=== PATIENT | male | born 1945 | race Caucasian/White ===

== ENCOUNTER 2019-10-06 16:45 | Emergency (ER) | payer MEDICARE, BC ==
--- NOTE | 2019-10-06 17:59 | ER Document Report ---
ED Medical Screen (RME) - General Chief Complaint: Laceration Stated Complaint: LACERATION/LEFT THUMB,TABLE SAW Time Seen by Provider: 10/06/19 17:54 Primary Care Provider: ANITRA NOONAN MD [Primary Care Provider] - Follow up as needed Mode of Arrival: Ambulatory Information source: Patient Notes: 74-year-old male presented to ED for significant laceration to the end of the left thumb from about the joint to the end of the finger. He states he was holding a board to cut and with a table saw when the saw got his thumb. He states he had a tetanus shot very recently. He states he was leukemic and is just gone into remission about a year ago. He is alert oriented respirations regular nonlabored speaking in full sentences. The bleeding is under control at this time when he first came in it was still bleeding but now it is stopped. I have greeted and performed a rapid initial assessment of this patient. A comprehensive ED assessment and evaluation of the patient, analysis of test results and completion of medical decision making process will be conducted by an additional ED providers. TRAVEL OUTSIDE OF THE [place] 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
[2019-10-06] MEDS ORDERED: LIDOCAINE 1% INJ-PF (10 MG/ML) 30 ML SDV INJ ONE (18:22)
[2019-10-06] MEDS ORDERED: DIPH/PERTUSS(ACELL)/TETANUS VAC/PF 0.5 ML SYR (>=10YO) IM ONE (18:30)
--- NOTE | 2019-10-06 18:30 | ER Document Report ---
ED General - General Chief Complaint: Laceration Stated Complaint: LACERATION/LEFT THUMB,TABLE SAW Time Seen by Provider: 10/06/19 17:54 Primary Care Provider: ANITRA NOONAN MD [Primary Care Provider] - Follow up as needed Mode of Arrival: Ambulatory Notes: Patient is a 74-year-old white male with a past medical history of leukemia in remission who presents to the emergency department with a chief complaint of thumb laceration that occurred just prior to arrival. The patient reports that he was using a table saw to cut some wood when it accidentally cut the pad of his left thumb. 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 He is taking it 3 times a day for 10 days, reports that he has approximately 9 days remaining. He reports it was bleeding at first but it has since ceased. He denies any numbness tingling or weakness. Denies any decreased range of motion. He is unsure of his last tetanus. TRAVEL OUTSIDE OF THE [place] IN LAST 30 DAYS: No - Related Data Allergies/Adverse Reactions: No Known Allergies Allergy (Verified 10/06/19 17:55) Past Medical History - General Information source: Patient - Social History Smoking Status: Former Smoker Chew tobacco use (# tins/day): No Frequency of alcohol use: Social Drug Abuse: None Family History: None Patient has suicidal ideation: No Patient has homicidal ideation: No - Past Medical History Cardiac Medical History: Denies: Hx Coronary Artery Disease, Hx Heart Attack, Hx Hypertension Pulmonary Medical History: Reports: Hx Pneumonia - 2006 Denies: Hx Asthma, Hx Bronchitis, Hx COPD Neurological Medical History: Denies: Hx Cerebrovascular Accident, Hx Seizures Musculoskeletal Medical History: 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, B/L knees Past Surgical History: Denies: Hx Pacemaker - Immunizations Hx Diphtheria, Pertussis, Tetanus Vaccination: Yes Review of Systems - Review of Systems Skin: Other - Laceration -: Yes All other systems reviewed and negative Physical Exam - Vital signs Vitals: Temp Pulse Resp BP Pulse Ox 98.1 F 82 18 154/78 H 97 10/06/19 17:14 10/06/19 17:14 10/06/19 17:14 10/06/19 17:14 10/06/19 17:14 - General General appearance: Appears well, Alert In distress: None - Respiratory Respiratory status: No respiratory distress Chest status: Nontender Breath sounds: Normal Chest palpation: Normal - Cardiovascular Rhythm: Regular Heart sounds: Normal auscultation - Extremities Hand: Other - Full range of motion of the left thumb with and without resistance - Neurological Neuro grossly intact: Yes Cognition: Normal Orientation: AAOx4 Golden Coma Scale Eye Opening: Spontaneous Giovana Coma Scale Verbal: Oriented Golden Coma Scale Motor: Obeys Commands Giovana Coma Scale Total: 15 Speech: Normal Motor strength normal: LUE, RUE, LLE, RLE Sensory: Normal - Psychological Associated symptoms: Normal affect, Normal mood - Skin Skin Temperature: Warm Skin Moisture: Dry Skin Color: Other - 2 cm laceration across the pad of the left thumb, jagged. No foreign body visualized. Hemostasis maintained. Good capillary refill distally. Course - Re-evaluation Re-evalutation: 10/06/19 20:07 Patient tolerated wound closure well. The remaining skin avulsion area was closed with a Gelfoam/Surgicel dressing. Encourage patient to keep that on at this time for hemostasis and to promote wound healing. He will be placed back on Keflex because he states cannot recall if he has enough at home. Given a short course of [place]. Counseled him regarding the importance of outpatient follow-up for wound recheck and reevaluation. Suture removal in approximately 10 to 12 days. Advised to return here or any ER immediately with any new, persistent or worsening symptoms. He verbalized understood and agreed. - Vital Signs Vital signs: Temp Pulse Resp BP Pulse Ox 98.1 F 82 18 154/78 H 97 10/06/19 17:14 10/06/19 17:14 10/06/19 17:14 10/06/19 17:14 10/06/19 17:14 Procedures - Laceration/Wound Repair Left Thumb Time completed: 20:08 Wound length (cm): 2 Wound's Depth, Shape: Superficial, Irregular Laceration pre-procedure: Sterile PPE donned, Chloraprep applied, Sterile drapes applied Anesthetic type: 1% Lidocaine Volume Anesthetic (mLs): 4 Wound explored: Clean Irrigated w/ Saline (mLs): 100 Wound Repaired With: Sutures Suture Size/Type: 4:0, Prolene Number of Sutures: 5 Layer Closure?: No Post-procedure wound care: Sterile dressing applied Post-procedure NV exam normal: Yes Complications: No Discharge - Discharge Clinical Impression: Thumb laceration Qualifiers: Encounter type: initial encounter Damage to nail status: without damage Foreign body presence: without foreign body Laterality: left Qualified Code(s): S61.012A - Laceration without foreign body of left thumb without damage to nail, initial encounter Condition: Stable Disposition: HOME, SELF-CARE Instructions: Laceration Care ([facility]) Additional Instructions: Follow-up with your regular doctor in 2 to 3 days for reevaluation. Return here or any ER immediately with any new, persistent or worsening symptoms. Prescriptions: Cephalexin Monohydrate [Keflex 500 mg Capsule] 500 mg PO Q6H 7 Days #28 capsule Hydrocodone/Acetaminophen [[place] 5-325 mg Tablet] 1 tab PO Q6 PRN #12 tablet PRN Reason: Referrals: ANITRA NOONAN MD [Primary Care Provider] - Follow up as needed
--- NOTE | 2019-10-06 18:35 | RADIOLOGY REPORT (SQ) ---
EXAM DESCRIPTION: FINGER LEFT COMPLETED DATE/TIME: 10/06/2019 5:07 pm REASON FOR STUDY: Laceration from table saw to the left thumb COMPARISON: None. NUMBER OF VIEWS: Three views. TECHNIQUE: AP, lateral, and oblique images acquired of the left 1st digit LIMITATIONS: Overlying bandage material at the distal 1st digit obscures some detail. FINDINGS: MINERALIZATION: Normal. BONES: Within the limits of the examination there is no evidence of acute fracture or cortical disrup tion. Joint space narrowing with small marginal osteophytes at the DIP and PIP joints consistent wit h chronic osteoarthritis. There is also joint space narrowing and subchondral sclerosis at the 1st d igit carpometacarpal joint also consistent with osteoarthritis. No significant the articular erosion s. SOFT TISSUES: No soft tissue swelling. No foreign body is detected, wall with somewhat limited evalu ation due to overlying bandage material at the 1st digit. Probable laceration volar surface distal 1 st digit. OTHER: No other significant finding. IMPRESSION: 1. Laceration volar surface distal 1st digit. No underlying fracture or evidence of radiopaque forei gn body, although overlying bandage does obscure detail somewhat. 2. 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 TECHNICAL DOCUMENTATION: JOB ID: [id number] 2010 [employer]- All Rights Reserved Reading location - IP/workstation name: [email or web address]
[2019-10-06 20:58] VITALS: BP 147/87
== END 2019-10-06 20:42 | disposition home or self-care (01) ==
LOC: ER 16:45
DX: S61.012A Laceration without foreign body of left thumb without damage to nail, initial encounter (principal); W29.8XXA Contact with other powered hand tools and household machinery, initial encounter; Y93.89 Activity, other specified; Z87.891 Personal history of nicotine dependence; Z98.890 Other specified postprocedural states; Z23 Encounter for immunization
CPT/HCPCS: 12001; 99282; 90471; 73140; 90715; J3490